=== PATIENT | male | born 1945 | race Caucasian/White ===

== ENCOUNTER 2017-10-23 07:36 | Emergency (ER) | payer MEDICARE ==
[~2017-10-23] VITALS: Ht 177.8 cm; Wt 10.0 kg
[~2017-10-23 07:36] MED LIST: FISH OIL1000 MG PO; MEDDOSEPAK PO; MULTI VIT PO; NORCO1 TA1 PO; PRAVASTATIN SOD20 MG PO; VITAMIN D-31000 UNIT PO
[2017-10-23 08:12] LABS: HEMATOCRIT 47.9 % (39.0-50.0); IMMATURE GRANULOCYTES 0.5 % (0.0-1.0); MEAN CELL VOLUME 92.6 fL CALC (80.0-100.0); MEAN CORPUSCULAR HGB 30.9 pG CALC (26.0-32.0); MEAN CORPUSCULAR HGB CONC 33.4 g/L CALC (32.0-36.0); RED BLOOD COUNT 5.17 mill/uL (4.70-6.10); RED CELL DISTRI WIDTH 12.4 % (11.5-15.5)
[2017-10-23 08:23] LABS: ANION GAP 16 (6-22 (CALC)); BUN 18 mg/dL (8-23); BUN/CREATININE RATIO 16 (12-20 (CALC)); CALCIUM 9.2 mg/dL (8.4-10.2); CARBON DIOXIDE 24 mmol/l (22-30); CHLORIDE 108 mmol/l (95-108); CREATININE 1.1 mg/dL (0.7-1.3); GFR > 60 ML/MIN (>=60 (CALC)); GFR FOR AFR.AMER. > 60 ML/MIN (>=60 (CALC)); GLUCOSE 130 mg/dL (82-115); POTASSIUM 4.7 mmol/l (3.5-5.1); SODIUM 143 mmol/l (137-146)
[2017-10-23 09:09] VITALS: BP 151/64
== END 2017-10-23 09:02 | disposition short-term general hospital (02) ==
LOC: ED 07:36
PROVIDERS: Family Medicine
DX: R07.9 Chest pain, unspecified (principal); R00.1 Bradycardia, unspecified; I95.9 Hypotension, unspecified

== ENCOUNTER 2019-11-30 | Emergency (ER) | payer MEDICARE ==
[2019-11-30 15:11] LABS: HEMATOCRIT 42.3 % (39.0-50.0); IMMATURE GRANULOCYTES 0.5 % (0.0-5.0); MEAN CELL VOLUME 93.2 fL CALC (80.0-100.0); MEAN CORPUSCULAR HGB 30.8 pG CALC (26.0-32.0); MEAN CORPUSCULAR HGB CONC 33.1 g/L CALC (32.0-36.0); NEUT# 3.7 thou/uL (1.82-7.42); RED BLOOD COUNT 4.54 mill/uL (4.70-6.10); RED CELL DISTRI WIDTH 12.1 % (11.5-15.5)
[2019-11-30 15:44] LABS: ALBUMIN 4.1 g/dL (3.2-5.0); ALKALINE PHOSPHATASE 75 u/l (38-126); ANION GAP 16 (6-22 (CALC)); BILIRUBIN, TOTAL 0.4 mg/dL (0.0-1.4); BUN 20 mg/dL (8-23); BUN/CREATININE RATIO 16 (12-20 (CALC)); CARBON DIOXIDE 22 mmol/l (22-30); CHLORIDE 103 mmol/l (95-108); CREATININE 1.3 mg/dL (0.7-1.3); GFR 54 ML/MIN (>=60 (CALC)); GFR FOR AFR.AMER. > 60 ML/MIN (>=60 (CALC)); POTASSIUM 4.8 mmol/l (3.5-5.1); SGOT/AST 35 u/l (19-48); SODIUM 136 mmol/l (137-146); TOTAL PROTEIN 7.6 g/dL (6.3-8.2)
[2019-11-30] MEDS ORDERED: TAM75CAP PO (16:08)
== END 2019-11-30 16:20 | disposition home or self-care (01) ==
DX: J10.1 Influenza due to other identified influenza virus with other respiratory manifestations (principal)

== ENCOUNTER 2020-01-22 | Emergency (ER) | payer MEDICARE ==
[~2020-01-22] MED LIST changes: +TAM75CAP PO
[2020-01-22] MEDS ORDERED: FLEXERIL PO (13:49)
[2020-01-22] MEDS ORDERED: MEDDOSEPAK PO (13:49)
== END 2020-01-22 14:07 | disposition home or self-care (01) ==
DX: M54.42 Lumbago with sciatica, left side (principal)

== ENCOUNTER 2020-11-17 11:45 | Emergency (ER) | payer OTHER, MEDICARE ==
[~2020-11-17] VITALS: Ht 177.8 cm; Wt 95.0 kg
[~2020-11-17 11:45] MED LIST changes: +FLEXERIL PO
[2020-11-17 13:05] VITALS: BP 168/81
== END 2020-11-17 13:05 | disposition home or self-care (01) | DRG 153 ==
LOC: ED 11:45
DX: J02.9 Acute pharyngitis, unspecified (principal); Z20.822 Contact with and (suspected) exposure to COVID-19

== ENCOUNTER 2022-08-19 10:25 | Emergency (ER) | payer OTHER, MEDICARE ==
[~2022-08-19] VITALS: Ht 177.8 cm; Wt 105.0 kg
[2022-08-19] MEDS ORDERED: AMOX/K CLAV875 M1 PO (11:40)
[2022-08-19 11:45] VITALS: BP 163/102
== END 2022-08-19 11:54 | disposition home or self-care (01) | DRG 605 ==
LOC: ED 10:25
DX: S81.851A Open bite, right lower leg, initial encounter (principal); W54.0XXA Bitten by dog, initial encounter

== ENCOUNTER 2023-06-12 09:57 | Emergency (ER) | payer OTHER, MEDICARE ==
[~2023-06-12] VITALS: Ht 177.8 cm; Wt 99.7 kg
[~2023-06-12 09:57] MED LIST changes: +AMOX/K CLAV875 M1 PO
[2023-06-12 10:06] VITALS: BP 160/99
[2023-06-12 10:18] VITALS: BP 160/99
[2023-06-12] MEDS ORDERED: CEPHALEXIN500 MG PO (10:35)
== END 2023-06-12 10:35 | disposition home or self-care (01) | DRG 607 ==
LOC: ED 09:57
DX: D23.5 Other benign neoplasm of skin of trunk (principal)

== ENCOUNTER 2024-05-09 06:32 | Observation (INO) | payer OTHER, MEDICARE ==
[~2024-05-09] VITALS: Ht 177.8 cm; Wt 99.4 kg
[2024-05-09] VITALS (14 sets, daily range): BP systolic 124–180; BP diastolic 54–122
[~2024-05-09 06:32] MED LIST changes: +CEPHALEXIN500 MG PO
[2024-05-09] MEDS ORDERED: STOOL SOFTENER100 M1 PO (06:56)
[2024-05-09] MEDS ORDERED: PERCOCET 5/321 COMBO PO (06:56)
[2024-05-09] MEDS ORDERED: FLEXERIL5 M1 PO (06:56)
[2024-05-09 07:27] LABS: BASO% 0.7 % (0-3); EOS% 3.6 % (0-8); HEMATOCRIT 38.6 % (39.0-50.0); HEMOGLOBIN 12.9 g/dl (14.0-18.0); IMMATURE GRANULOCYTES 0.6 % (0.0-5.0); LYMPH% 18.2 % (15-41); MEAN CELL VOLUME 94.6 fL CALC (80.0-100.0); MEAN CORPUSCULAR HGB 31.6 pG CALC (26.0-32.0); MEAN CORPUSCULAR HGB CONC 33.4 g/dL CAL (32.0-36.0); MONO% 11.7 % (2-13); NEUT# 4.55 thou/uL (1.82-7.42); NEUT% 65.2 % (42-76); RED BLOOD COUNT 4.08 mill/uL (4.70-6.10); RED CELL DISTRI WIDTH 11.9 % (11.5-15.5)
[2024-05-09 07:42] LABS: CREATININE 0.9 mg/dL (0.7-1.3); POTASSIUM 4.5 mmol/l (3.5-5.1); TOTAL PROTEIN 7.9 g/dL (6.3-8.2)
[2024-05-09 07:43] LABS: BILIRUBIN, TOTAL 0.6 mg/dL (0.2-1.3)
[2024-05-09] MEDS ORDERED: Peg 3350-POTASSIUM CHLORIDE-So 4,000 ML BTL PO ONE (09:35)
[2024-05-09] MEDS ORDERED: ACETAMINOPHEN 325 MG/TAB PO PRN (11:10)
[2024-05-09] MEDS ORDERED: SODIUM CHLORIDE 0.9% 1,000 ML IV PRN (11:10)
[2024-05-09] MEDS ORDERED: MAGNESIUM HYDROXIDE 30 ML UDC PO PRN (11:10)
[2024-05-09] MEDS ORDERED: hydrALAZINE HCL 20 MG/ML VIAL(1 ML) IV PRN (11:15)
[2024-05-09] MEDS ORDERED: amLODIPine BESYLATE 5 MG/TAB PO SCH (12:00)
[2024-05-09] MEDS ORDERED: ENOXAPARIN SODIUM 40 MG/0.4 ML SYR SC SCH (21:00)
[2024-05-09] MEDS ORDERED: oxyCODONE 10MG/APAP 325 MG 1 COMBO TAB PO PRN (21:25)
[2024-05-09] MEDS ORDERED: CYCLOBENZAPRINE HCL 5 MG TAB PO PRN (21:25)
[2024-05-10 03:57] VITALS: BP 112/44
[2024-05-10 05:50] LABS: BASO% 0.6 % (0-3); EOS% 2.1 % (0-8); HEMATOCRIT 34.6 % (39.0-50.0); HEMOGLOBIN 11.7 g/dl (14.0-18.0); IMMATURE GRANULOCYTES 0.5 % (0.0-5.0); LYMPH% 22.4 % (15-41); MEAN CELL VOLUME 95.1 fL CALC (80.0-100.0); MEAN CORPUSCULAR HGB 32.1 pG CALC (26.0-32.0); MEAN CORPUSCULAR HGB CONC 33.8 g/dL CAL (32.0-36.0); MONO% 11.8 % (2-13); NEUT# 5.11 thou/uL (1.82-7.42); NEUT% 62.6 % (42-76); RED BLOOD COUNT 3.64 mill/uL (4.70-6.10)
[2024-05-10 06:07] LABS: BILIRUBIN, TOTAL 0.7 mg/dL (0.2-1.3); CHOLESTEROL HDL RATIO 4.9 (<4.4 (CALC)); CREATININE 0.9 mg/dL (0.7-1.3); MAGNESIUM 2.4 mg/dL (1.6-2.3); POTASSIUM 4.5 mmol/l (3.5-5.1)
[2024-05-10 06:08] LABS: ALBUMIN 3.1 g/dL (3.2-5.0); TOTAL PROTEIN 6.3 g/dL (6.3-8.2)
[2024-05-10 06:44] VITALS: BP 127/50
[2024-05-10] MEDS ORDERED: SENNA LAXATIVE8.6 MG PO (06:59)
[2024-05-10 08:09] VITALS: BP 143/54
[2024-05-10 10:37] VITALS: BP 126/60
[2024-05-10 15:26] VITALS: BP 136/73
== END 2024-05-10 12:54 | disposition home or self-care (01) | DRG 390 ==
LOC: ED 06:32 → ED-I 09:10 → ED 09:21 → MS2 09:32
PROVIDERS: Family Medicine; ADMIT Student in an Organized Health Care Education/Training Program; ATTEND Student in an Organized Health Care Education/Training Program
PROC: 0T9B70Z Drainage of Bladder with Drainage Device, Via Natural or Artificial Opening (ICD-10-PCS; principal; 2024-05-09)
DX: K56.41 Fecal impaction (principal); T40.2X5A Adverse effect of other opioids, initial encounter; R33.9 Retention of urine, unspecified; I10 Essential (primary) hypertension; T46.5X6A Underdosing of other antihypertensive drugs, initial encounter; Z91.128 Patient's intentional underdosing of medication regimen for other reason; Z98.1 Arthrodesis status
CPT/HCPCS: J1650